=== PATIENT | female | born 1930 | race Caucasian/White ===

== ENCOUNTER 2017-07-26 20:24 | Emergency (ER) | payer MEDICARE, MEDICAID ==
--- NOTE | 2017-07-26 20:57 | UC ---
Respiratory Complaint HPI - HPI Summary HPI Summary: 87 YEAR OLD FEMALE PRESENTS WITH COMPLAINS OF COUGH AND FEVER. - History of Current Complaint Chief Complaint: UCRespiratory Stated Complaint: COUGH Time Seen by Provider: 07/26/17 20:54 Hx Obtained From: Patient Hx Last Menstrual Period: n/a Onset/Duration: Sudden Onset Severity Initially: Moderate Severity Currently: Moderate - Allergies/Home Medications Allergies/Adverse Reactions: Allergies Allergy/AdvReac Type Severity Reaction Status Date / Time No Known Allergies Allergy Verified 07/26/17 20:43 PMH/Surg Hx/FS Hx/Imm Hx Previously Healthy: Yes - Surgical History Surgical History: Yes Surgery Procedure, Year, and Place: gall bladder - Family History Known Family History: Positive: None - Social History Alcohol Use: None Substance Use Type: None Smoking Status (MU): Never Smoked Tobacco - Immunization History Most Recent Influenza Vaccination: yes 05/2017 Review of Systems Constitutional: Negative Skin: Negative Eyes: Negative ENT: Negative Respiratory: Shortness Of Breath, Cough Cardiovascular: Negative Gastrointestinal: Negative Genitourinary: Negative Motor: Negative Neurovascular: Negative Musculoskeletal: Negative Neurological: Negative Psychological: Negative All Other Systems Reviewed And Are Negative: Yes Physical Exam Triage Information Reviewed: Yes Vital Signs: Initial Vital Signs Temp 37.0 C 07/26/17 20:38 Pulse 74 07/26/17 20:38 Resp 24 07/26/17 20:38 BP 152/78 07/26/17 20:38 Pulse Ox 97 07/26/17 20:38 Vital Signs Reviewed: Yes Eye Exam: Normal ENT Exam: Normal Dental Exam: Normal Neck exam: Normal Neck: Positive: 1 Respiratory: Positive: Decreased breath sounds, Rhonchi, Wheezing Cardiovascular Exam: Normal Abdominal Exam: Normal Musculoskeletal Exam: Normal Neurological Exam: Normal Psychological Exam: Normal Skin Exam: Normal UC Diagnostic Evaluation - Laboratory O2 Sat by Pulse Oximetry: 97 Respiratory Course/Dx - Differential Dx/Diagnosis Provider Diagnoses: PNEUMONIA. COUGH. WHEEZING Discharge - Discharge Plan Condition: Stable Disposition: HOME Prescriptions: Amoxicillin/Clavulanate TAB* [Augmentin TAB 875*] 875 mg PO BID #20 tab Guaifenesin-Codeine [Cheratussin AC] 1 teasp PO Q8H PRN #120 ml MDD 15 ml PRN Reason: Cough LoraTADine TAB(NF) [Claritin 10 MG TAB(NF)] 10 mg PO DAILY #30 tab Patient Education Materials: Allergic Rhinitis (ED), Acute Cough (ED) Referrals: Claudette Mullen MD [Primary Care Provider] -
--- NOTE | 2017-07-26 21:45 | RAD ---
INDICATION: Cough. Cardiac disease. COMPARISON: No relevant prior exams available on the [facility] PACS for comparison. TECHNIQUE: Dual energy PA and routine lateral views of the chest were obtained. REPORT: Mild patchy bilateral pulmonary infiltrates. Mild prominence of interstitial markings. Linear subsegmental atelectasis at the peripheral LEFT mid lung zone. Small dependent LEFT pleural effusion. Negative for pneumothorax. Cardiomegaly. Mildly prominent central pulmonary vasculature. Unremarkable mediastinal contours accounting for mild RIGHT convex curve of the thoracic spine. IMPRESSION: The constellation of findings is suspicious for bronchopneumonia.
[2017-07-26] MEDS ORDERED: Amoxicillin/Clavulanate TAB* 875 MG PO ONE (21:59)
== END 2017-07-26 22:38 | disposition home or self-care (01) ==
LOC: UCCORT 20:24
DX: J18.9 Pneumonia, unspecified organism (principal); R06.2 Wheezing
CPT/HCPCS: 71020; 99212; A9270-GY; G0463

== ENCOUNTER 2018-08-28 10:15 | Emergency (ER) | payer MEDICARE, MEDICAID ==
--- NOTE | 2018-08-28 11:21 | UC ---
UC General HPI - HPI Summary HPI Summary: pt presents with her daughter. daughter notes 2 day hx swelling to legs from thighs down, weakness, wheezing and MACHUCA. daughter denies hx of CHF and leg edema like this. may get slight swelling that resolves with no tx. Denies CP and fever. Not able to walk per her baseline due to the weakness. PMH extensive and includes but not limited to CAD, DM, HTN, StageIII renal disease, Stable lung CA. - History of Current Complaint Chief Complaint: UCGeneralIllness Stated Complaint: BILATERAL LOWER LEG SWELLING Time Seen by Provider: 08/28/18 10:55 Hx Obtained From: Patient, Family/Water Taxi Captain, Access Developer - daughter. pt's [place] Citizen is limited. Hx Last Menstrual Period: n/a Onset/Duration: Gradual Onset Timing: Constant Pain Intensity: 0 Associated Signs & Symptoms: Positive: Cough, Edema, SOB, Wheezing, Weakness. Negative: Abdominal Pain, Anticoagulation Therapy, Back Pain, Dizziness, Diaphoresis, Fever, Nausea, Syncope, Vomiting - Allergy/Home Medications Allergies/Adverse Reactions: Allergies Allergy/AdvReac Type Severity Reaction Status Date / Time No Known Allergies Allergy Verified 07/26/17 20:43 Home Medications: Home Medications Acarbose 25 mg PO DAILY 08/28/18 [History Confirmed 08/28/18] Cranberry 400 mg PO DAILY 08/28/18 [History Confirmed 08/28/18] Insulin Glargine,Hum.rec.anlog [Basaglar Kwikpen U-100] 1 each INJ DAILY [History Confirmed 08/28/18] Oxygen 2 each INH BEDTIME 08/28/18 [History] PMH/Surg Hx/FS Hx/Imm Hx - Additional Past Medical History Additional PMH: HTN, CAD, IDDM, Aortic Stenosis, Stage III Renal dz, Stable lung CA, Hyperlipidemia, Mild dementia. - Surgical History Surgical History: Yes Surgery Procedure, Year, and Place: gall bladder. HYSTERECTOMY. CATARACT SURGERY RENE. LUNG BIOPSY - Family History Known Family History: Positive: Non-Contributory - Social History Lives: With Family Alcohol Use: None Substance Use Type: None Smoking Status (MU): Never Smoked Tobacco - Immunization History Most Recent Influenza Vaccination: yes 05/2017 Vaccination Up to Date: Yes Review of Systems All Other Systems Reviewed And Are Negative: Yes Constitutional: Positive: Fatigue Skin: Positive: Negative Eyes: Positive: Negative ENT: Positive: Negative Respiratory: Positive: Shortness Of Breath, Cough Cardiovascular: Negative: Chest Pain Gastrointestinal: Positive: Negative Genitourinary: Positive: Negative Motor: Positive: Negative Neurovascular: Positive: Negative Musculoskeletal: Positive: Edema Neurological: Positive: Weakness Psychological: Positive: Negative Physical Exam Triage Information Reviewed: Yes Appearance: Ill-Appearing - but non toxic, Other: - Pale Vital Signs: Initial Vital Signs Temp 98 F 08/28/18 10:48 Pulse 88 08/28/18 10:48 Resp 16 08/28/18 10:48 BP 113/62 08/28/18 10:48 Pulse Ox 99 08/28/18 10:48 Vital Signs Reviewed: Yes Eyes: Positive: Conjunctiva Clear, Other: - Pupils s/p cataract surgery ENT: Positive: Pharynx normal, TMs normal. Negative: Nasal congestion, Nasal drainage Neck: Positive: Supple, Nontender, No Lymphadenopathy, Other: - ? mild JVD Respiratory: Positive: No respiratory distress, Decreased breath sounds Cardiovascular: Positive: Tachycardia, Other: - Irregular with pansystolic murmur over base Abdomen Description: Positive: Nontender, No Organomegaly, Soft. Negative: Distended, Guarding Bowel Sounds: Positive: Present Musculoskeletal: Positive: ROM Intact, Edema @ - Pitting from thighs down both legs Neurological: Positive: Alert Psychological: Positive: Age Appropriate Behavior Skin Exam: Other - Pale but warm and dry. Diagnostics - EKG Cardiac Rhythm: AFib: New Ectopy: None ST Segment: Non-Specific Course/Dx - Course Course Of Treatment: New onset extensive edema BLE's with bronchospasm, MACHUCA, weakness and new onset afib. PMH extensive including CAD, , DM CA and renal dz. This is likely multisysytem including cardiac and renal pathology. Also concerning for hepatic dz and DVT possible with the new onset afib and CA thus transfer required to [facility] in [place] where all specialty services are available including her breast splitter. pt and daughter agree to transfer. [facility] ER called, report given to Dr Lo. Advies of pt PMH including stage III renal dz with new onset edema, weakness, wheezing, MACHUCA and afib. NO CRITICAL CARE TIME - Diagnoses Provider Diagnosis: Atrial fibrillation, new onset, Edema leg, Bronchospasm, acute, Dyspnea on exertion Discharge - Sign-Out/Discharge Documenting (check all that apply): Patient Departure All imaging exams completed and their final reports reviewed: No Studies - Discharge Plan Condition: Stable Disposition: TRANS HIGHER LVL OF CARE FAC Referrals: Claudette Mullen MD [Primary Care Provider] - - Billing Disposition and Condition Condition: STABLE Disposition: Trans Higher Lvl of Care Fac
[2018-08-28 11:28] VITALS: BP 124/88
== END 2018-08-28 11:29 | disposition short-term general hospital (02) ==
LOC: UCCORT 10:15
DX: I48.91 Unspecified atrial fibrillation (principal); R60.9 Edema, unspecified; J98.01 Acute bronchospasm; R06.00 Dyspnea, unspecified; E11.9 Type 2 diabetes mellitus without complications; I10 Essential (primary) hypertension; I12.9 Hypertensive chronic kidney disease with stage 1 through stage 4 chronic kidney disease, or unspecified chronic kidney disease; N18.3 Chronic kidney disease, stage 3 (moderate); Z79.4 Long term (current) use of insulin; C34.90 Malignant neoplasm of unspecified part of unspecified bronchus or lung
CPT/HCPCS: 93005; 99213; G0463